=== PATIENT | female | born 1935 | race Asian ===

== ENCOUNTER → 2016-10-30 | Outpatient (CLI) | payer MEDICAID, OTHER ==
[~2016-10-30] MED LIST: ACET-66 PO; ATEN-187 PO; FLUT1DIS IH; MONT10TA21 PO; PANT40TA25 PO; TRAM50TA4 PO; VALS80TA2 PO
== END | disposition home or self-care (01) ==
LOC: RADPV 09:50
PROVIDERS: ATTEND Internal Medicine
DX: I70.0 Atherosclerosis of aorta (principal); S22.089D Unspecified fracture of T11-T12 vertebra, subsequent encounter for fracture with routine healing; X58.XXXD Exposure to other specified factors, subsequent encounter; Z98.890 Other specified postprocedural states
CPT/HCPCS: 71020

== ENCOUNTER 2016-11-05 10:22 | Emergency (ER) | payer MEDICAID, OTHER ==
[~2016-11-05] VITALS: Ht 152.4 cm; Wt 42.7 kg
[2016-11-05] MEDS ORDERED: CARV12 PO (10:49)
[2016-11-05] MEDS ORDERED: MOMETASONE NS (11:08)
[2016-11-05] MEDS ORDERED: ALBU8HFA IH (11:08)
[2016-11-05] MEDS ORDERED: LEVO5TAB13 PO (11:08)
[2016-11-05] MEDS ORDERED: OMEP20 PO (11:08)
[2016-11-05] MEDS ORDERED: TRAZ-144 PO (11:08)
[2016-11-05] MEDS ORDERED: COLC0.6T69 PO (11:08)
[2016-11-05] MEDS ORDERED: VITAD1000 PO (11:08)
[2016-11-05] MEDS ORDERED: MULT-1203 PO (11:08)
[2016-11-05] MEDS ORDERED: ASPI81TA42 PO (11:08)
[2016-11-05] MEDS ORDERED: RANO500T3 PO (11:08)
[2016-11-05] MEDS ORDERED: ACET-2247 PO (11:08)
[2016-11-05] MEDS ORDERED: BENZ-26 PO (11:08)
[2016-11-05] MEDS: ONDANSETRON HCL 4 MG/2 ML VIAL IVP ONE (11:50)
[2016-11-05 12:03] LABS: BASOPHILS % (AUTO) 0.4 % (0.0-2.0); EOSINOPHILS % (AUTO) 2.7 % (1.0-6.0); HEMATOCRIT 34.8 % (36-46); HEMOGLOBIN 10.8 g/dL (12.0-16.0); LYMPHOCYTES # (AUTO) 1.8 K/uL (1.0-4.8); LYMPHOCYTES % (AUTO) 38.9 % (22.0-44.0); MEAN CORPUSCULAR HEMOGLOBIN 27.1 pg (26.0-34.0); MEAN CORPUSCULAR HGB CONC 31.1 G/dL (31.0-37.0); MEAN CORPUSCULAR VOLUME 87 fL (80-100); MONOCYTES # (AUTO) 0.4 K/uL (0.1-1.0); MONOCYTES % (AUTO) 7.8 % (2.0-9.0); NEUTROPHILS # (AUTO) 2.3 K/uL (1.8-7.7); NEUTROPHILS % (AUTO) 50.2 % (40.0-70.0); PLATELET COUNT (AUTO) 194 K/uL (150-450); RED CELL DISTRIBUTION WIDTH 14.4 % (11.5-14.5); WHITE BLOOD COUNT (AUTO) 4.6 K/uL (4.5-11.0)
[2016-11-05 12:14] LABS: CALCIUM, TOTAL 9.2 mg/dL (8.8-10.5); CREATININE 1.36 mg/dL (0.60-1.30)
[2016-11-05 12:19] LABS: ALBUMIN 4.1 g/dL (3.4-5.0); BILIRUBIN,TOTAL 0.5 mg/dL (0.1-1.0); TOTAL PROTEIN, SERUM 7.6 g/dL (6.4-8.2)
[2016-11-05 12:54] LABS: ADD UA MICROSCOPIC YES; APPEARANCE,URINE CLEAR (CLEAR); GLUCOSE, URINE (UA) NEGATIVE (NEGATIVE); KETONES,URINE NEGATIVE (NEGATIVE); LEUKOCYTE ESTERASE ,URINE SMALL (NEGATIVE); OCCULT BLOOD,URINE NEGATIVE (NEGATIVE); PH,URINE 5.5 (5.0-8.0); PROTEIN,URINE TRACE (NEGATIVE)
[2016-11-05 13:07] LABS: RBC,URINE 0-2 /HPF (0-2)
[2016-11-05 13:08] LABS: SQUAMOUS EPITHELIAL CELL,UR Rare /LPF (None Seen)
[2016-11-05 14:48] VITALS: BP 137/79
== END 2016-11-05 14:50 | disposition home or self-care (01) ==
LOC: EMS 10:24
DX: K59.00 Constipation, unspecified (principal); R11.0 Nausea; M19.90 Unspecified osteoarthritis, unspecified site; J45.909 Unspecified asthma, uncomplicated; I10 Essential (primary) hypertension; E78.00 Pure hypercholesterolemia, unspecified; Z88.1 Allergy status to other antibiotic agents; Z88.2 Allergy status to sulfonamides
CPT/HCPCS: 36415; 74022; 80053; 81001; 83690; 84484; 85025; 93005; 96374; 99285; J2405

== ENCOUNTER 2018-07-04 01:00 | Emergency (ER) | payer OTHER ==
[~2018-07-04] VITALS: Ht 152.4 cm; Wt 38.2 kg
[~2018-07-04 01:00] MED LIST changes: +ACET-2247 PO; -ACET-66 PO; +ALBU8HFA IH; +ASPI81TA42 PO; -ATEN-187 PO; +BENZ-51 PO; +CARV12 PO; +COLC0.6T67 PO; +LEVO5TAB13 PO; +MOMETASONE NS; -MONT10TA21 PO; +MULT-1203 PO; +OMEP20 PO; -PANT40TA25 PO; +RANO500T3 PO; -TRAM50TA4 PO; +TRAZ-219 PO; +VITAD1000 PO
[2018-07-04] MEDS ORDERED: ROSU10 PO (01:14)
[2018-07-04] MEDS ORDERED: VALS1TAB75 PO (01:15)
[2018-07-04] MEDS ORDERED: AMLO-511 PO (01:15)
[2018-07-04] MEDS ORDERED: VITAD1000 PO (01:16)
[2018-07-04 02:07] LABS: APPEARANCE,URINE CLEAR (CLEAR); BILIRUBIN,URINE NEGATIVE (NEGATIVE); GLUCOSE, URINE (UA) NEGATIVE (NEGATIVE); KETONES,URINE NEGATIVE (NEGATIVE); LEUKOCYTE ESTERASE ,URINE NEGATIVE (NEGATIVE); NITRATE,URINE NEGATIVE (NEGATIVE); OCCULT BLOOD,URINE NEGATIVE (NEGATIVE); PROTEIN,URINE POS 1+ (NEGATIVE); UROBILINOGEN,URINE 0.2 mg/dL (<=1.0)
[2018-07-04 02:27] LABS: BASOPHILS % (AUTO) 0.9 % (0.0-2.0); EOSINOPHILS % (AUTO) 7.7 % (1.0-6.0); HEMATOCRIT 33.8 % (36-46); LYMPHOCYTES # (AUTO) 1.9 K/uL (1.0-4.8); LYMPHOCYTES % (AUTO) 39.8 % (22.0-44.0); MEAN CORPUSCULAR HEMOGLOBIN 27.5 pg (26.0-34.0); MEAN CORPUSCULAR HGB CONC 32.6 G/dL (31.0-37.0); MEAN CORPUSCULAR VOLUME 84 fL (80-100); MONOCYTES # (AUTO) 0.3 K/uL (0.1-1.0); MONOCYTES % (AUTO) 6.3 % (2.0-9.0); NEUTROPHILS # (AUTO) 2.2 K/uL (1.8-7.7); NEUTROPHILS % (AUTO) 45.3 % (40.0-70.0); PLATELET COUNT (AUTO) 240 K/uL (150-450); RED BLOOD CELL COUNT(AUTO) 4.01 MIL/uL (4.00-5.20); RED CELL DISTRIBUTION WIDTH 16.1 % (11.5-14.5)
[2018-07-04 02:36] LABS: ANION GAP 10 mmol/L (8-16); CALCIUM, TOTAL 9.6 mg/dL (8.8-10.5); CARBON DIOXIDE 28 mmol/L (22-29); CHLORIDE 102 mmol/L (98-107); CREATININE 0.87 mg/dL (0.60-1.30); GLOMERULAR FILTR. RATE CALC > 60 mL/min (>60); GLUCOSE,RANDOM 87 mg/dL (70-110); POTASSIUM 4.1 mmol/L (3.5-5.1); SODIUM SERUM 140 mmol/L (136-145); UREA NITROGEN, BLOOD 18 mg/dL (7-18)
[2018-07-04 02:41] LABS: INR 0.9 (0.9-1.1); PROTHROMBIN TIME 9.7 SEC (9.4-11.6)
[2018-07-04 02:45] LABS: B-TYPE NATRIURETIC PEPTIDE 109 pg/mL (0-100)
[2018-07-04 03:00] LABS: ALANINE AMINOTRANSFERASE 36 U/L (12-78); ALBUMIN 3.7 g/dL (3.4-5.0); ALKALINE PHOSPHATASE 166 U/L (46-116); ASPARTATE AMINOTRANSFERASE 33 U/L (15-37); BILIRUBIN,TOTAL 0.4 mg/dL (0.1-1.0); CREATINE KINASE, TOTAL ONLY 114 U/L (26-192); LIPASE 142 U/L (73-393); TOTAL PROTEIN, SERUM 7.5 g/dL (6.4-8.2)
[2018-07-04] MEDS ORDERED: SODIUM CHLORIDE 0.9% 500 ML IV ONE (03:15)
[2018-07-04] MEDS ORDERED: ACETAMINOPHEN 500 MG TABLET PO ONE (03:15)
[2018-07-04 03:34] LABS: INFLUENZA TYPE A NEGATIVE FOR TYPE A (NEGATIVE); INFLUENZA TYPE B NEGATIVE FOR TYPE B (NEGATIVE)
[2018-07-04 09:46] VITALS: BP 127/84
== END 2018-07-04 09:49 | disposition short-term general hospital (02) ==
LOC: EMS 01:00
DX: R07.9 Chest pain, unspecified (principal); R53.1 Weakness; R11.0 Nausea; R10.30 Lower abdominal pain, unspecified; J45.909 Unspecified asthma, uncomplicated; I11.9 Hypertensive heart disease without heart failure; E78.00 Pure hypercholesterolemia, unspecified; M19.90 Unspecified osteoarthritis, unspecified site; Z88.2 Allergy status to sulfonamides; Z88.1 Allergy status to other antibiotic agents; Z79.82 Long term (current) use of aspirin
CPT/HCPCS: 36415; 71045; 80053; 81003; 82550; 83690; 83880; 84484; 85025; 85610; 85730; 87804; 93005; 96360; 99285; J7030